=== PATIENT | female | born 1930 | race Caucasian/White ===

== ENCOUNTER 2018-12-13 02:11 | Emergency (ER) | payer MEDICARE ==
[~2018-12-13] VITALS: Ht 154.9 cm; Wt 61.7 kg
[2018-12-13] MEDS ORDERED: HYDROCODONE/APAP 5/325MG 1 EACH TABLET PO ONE (02:30)
--- NOTE | 2018-12-13 02:30 | NUR ---
MATIAS FROM HOME. TO ER BED 10. AAOX4. NO RESP DISTRESS NOTED. C/O R SHOULDER PAIN S/P GLF. PERT PT, SHE FELL AND A RECYCLING GARBAGE BIN WHLE SHE WAS OPENING THE LID AND IT MOVED FORWARD DRAGGING HER DOWN TO FALL. SHE REPORTS LANDING ON HER RIGHT SIDE. PT DENIES HITTING HER HEAD, NO KO. MD AT BEDSIDE FOR EVAL. ORDERS RECEIVED, NOTED AND CARRIED OUT. XRAY AT BEDSIDE
[2018-12-13] MEDS ORDERED: HYDROCODONE/APAP 5/325MG 1 EACH TABLET ONE (02:33)
--- NOTE | 2018-12-13 02:36 | NUR ---
XRAY AT BEDSIDE
--- NOTE | 2018-12-13 02:49 | NUR ---
PT REATES HER PAIN 10/10 SHARP PAIN. PAIN AGGREVATED BY MOVEMENT.
[2018-12-13] MEDS ORDERED: PROPOFOL 20 ML IV ONE (03:38)
--- NOTE | 2018-12-13 04:00 | NUR ---
PT FOR REDUCTION OF R SHOULDER S/P FALL. CONSENT OBTAINED FROM PT. 0345: PROPOFOL 80MG VIA IVP GIVEN PER MD ORDERED 0346: REDUCTION DONE BY MD AND SHOULDER IMMOBILIZER PLACED. 0347: O2 VIA NON REBREATHER MASK APPLIED NOTED PT O2 SAT IN 70s 0348: PT BAGGED, O2 SAT WENT UP TO 90%, BP: 83/47 77 - NS 1L RUNNING 0350: O2 SAT 100% ON RA 0353: PT WOKE UP, ALLERT, AWAKE AND ORIENTED. VD: HR: 79 BP: 156/80, O2SAT: 97% ON RA 0356: ALL THE TIME DURING PROCEDURE AND POST PROCEDURE MD IS AT BEDSIDE SPEAKING WITH PT, AAOX4 0357: RADIOLOGY AT BEDSIDE
[2018-12-13] MEDS ORDERED: PROPOFOL 200 MG/20 ML VIAL IV ONE (05:00)
--- NOTE | 2018-12-13 06:22 | NUR ---
PT AMBULATED WELL WITHOUT ANY ASSIST ON STEADY GAIT.
--- NOTE | 2018-12-13 06:23 | NUR ---
PT PROVIDED WITH TAXI VOUCHER TO GO HOME. PT IS AAOX4.
--- NOTE | 2018-12-13 06:23 | NUR ---
Patient discharged to home in stable condition. Written and verbal after care instructions given. Patient verbalizes understanding of instruction. Pt ambulatory with a steady gait IV removed. Catheter intact and site benign. Pressure and 4x4 applied to site. No bleeding noted.
[2018-12-13 06:24] VITALS: BP 74/135
--- NOTE | 2018-12-13 06:25 | NUR ---
PT UNABLE TO DISCHARGE PAPER D/T R ARM IS IN A SLING AND CANT SIGN. WITNESSED BY [facility] NURSE, RAHUL NARVAEZ
== END 2018-12-13 06:26 | disposition home or self-care (01) ==
LOC: ER 02:14
DX: S43.014A Anterior dislocation of right humerus, initial encounter (principal); S20.211A Contusion of right front wall of thorax, initial encounter; S50.01XA Contusion of right elbow, initial encounter; I10 Essential (primary) hypertension; E03.9 Hypothyroidism, unspecified; W18.39XA Other fall on same level, initial encounter; Y93.89 Activity, other specified; Y92.89 Other specified places as the place of occurrence of the external cause; Y99.8 Other external cause status
CPT/HCPCS: 23650; 71100; 73030 ×2; 73080; 99152; 99285; J2704; J7030; G0500